=== PATIENT | female | born 1975 | race Caucasian/White ===

== ENCOUNTER → 2023-03-13 13:40 | Outpatient (REF) | payer OTHER, SELFPAY | LOC: WDC 13:40 | PROVIDERS: ATTENDING PHYSICIAN Nurse Practitioner Adult Health | DX: Z12.31 Encounter for screening mammogram for malignant neoplasm of breast (principal); R92.8 Other abnormal and inconclusive findings on diagnostic imaging of breast | CPT/HCPCS: 76642; 77063; 77067 ==

== ENCOUNTER → 2023-07-21 06:34 | Outpatient (REF) | payer OTHER, SELFPAY ==
[2023-07-21 09:27] LABS: ALT (SGPT) 16 U/L (0-35); AST (SGOT) 20 U/L (14-36); Alkaline Phosphatase 53 U/L (38-126); Blood Urea Nitrogen 12 mg/dl (7-17); Carbon Dioxide 25 mmol/L (22-30); Chloride 105 mmol/L (98-107); Glucose 113 mg/dl (70-99); Potassium 4.2 mmol/L (3.5-5.1); Sodium 138 mmol/L (135-145); Total Bilirubin 0.6 mg/dl (0.2-1.3); Total Protein 6.7 g/dl (6.3-8.2); eGFR > 60.00
[2023-07-21 09:41] LABS: Glycohemoglobin (HgbA1c) 7.1 % (4.0-5.6)
== END ==
LOC: CLINIC 06:34
PROVIDERS: ATTENDING PHYSICIAN Nurse Practitioner Adult Health
DX: E11.9 Type 2 diabetes mellitus without complications (principal)
CPT/HCPCS: 36415; 80053; 83036

== ENCOUNTER → 2023-10-19 11:07 | Outpatient (REF) | payer OTHER, SELFPAY ==
[2023-10-19 11:49] LABS: Hematocrit 36.1 % (37.0-47.0); Hemoglobin 11.7 g/dL (12.0-16.0); Mean Corp Hgb Conc. 32.4 g/dL (33.0-37.0); Mean Corpuscular Hgb 25.3 pg (27.0-31.0); Mean Platelet Volume 12.2 fL (7.4-10.4); Platelet Count 236 10^3/uL (130-400); Red Blood Cell Count 4.63 10^6/uL (4.20-5.40); White Blood Cell Count 7.4 10^3/uL (4.8-10.8)
[2023-10-19 12:18] LABS: Microalbumin/creatinine Ratio 27.7 mg/g
[2023-10-19 12:22] LABS: ALT (SGPT) 15 U/L (0-35); AST (SGOT) 21 U/L (14-36); Albumin 4.4 g/dl (3.5-5.0); Alkaline Phosphatase 66 U/L (38-126); Blood Urea Nitrogen 14 mg/dl (7-17); Calcium 9.3 mg/dl (8.4-10.2); Carbon Dioxide 23 mmol/L (22-30); Chloride 103 mmol/L (98-107); Glucose 109 mg/dl (70-99); HDL Cholesterol 42 mg/dl; LDL Cholesterol, Calculated 173 mg/dl; Potassium 4.6 mmol/L (3.5-5.1); Sodium 140 mmol/L (135-145); Total Bilirubin 0.5 mg/dl (0.2-1.3); Total Cholesterol 253 mg/dl (50-199); Triglyceride 193 mg/dl (10-149); Very Low Density Lipoprotein 38 mg/dl (0-30); eGFR > 60.00
[2023-10-19 12:23] LABS: Glycohemoglobin (HgbA1c) 6.5 % (4.0-5.6)
[2023-10-19 13:03] LABS: Vitamin B12 > 1000 pg/ml (239-931)
== END ==
LOC: REG 11:07
PROVIDERS: ATTENDING PHYSICIAN Nurse Practitioner Adult Health
DX: D50.8 Other iron deficiency anemias (principal); E11.9 Type 2 diabetes mellitus without complications; E78.2 Mixed hyperlipidemia
CPT/HCPCS: 36415; 80053; 80061; 82043; 82570; 82607; 83036; 85027

== ENCOUNTER → 2023-12-08 07:25 | Outpatient (REF) | payer OTHER, SELFPAY ==
[2023-12-08 09:06] LABS: ALT (SGPT) 17 U/L (0-35); AST (SGOT) 18 U/L (14-36); Albumin 4.2 g/dl (3.5-5.0); Alkaline Phosphatase 50 U/L (38-126); Total Bilirubin 0.4 mg/dl (0.2-1.3); Total Protein 6.7 g/dl (6.3-8.2)
== END ==
LOC: CLINIC 07:25
PROVIDERS: ATTENDING PHYSICIAN Nurse Practitioner Adult Health
DX: E78.2 Mixed hyperlipidemia (principal)
CPT/HCPCS: 36415; 80076

== ENCOUNTER → 2024-02-23 09:43 | Outpatient (REF) | payer OTHER, SELFPAY ==
[2024-02-23 11:19] LABS: Hemoglobin 12.4 g/dL (12.0-16.0); Mean Corp Hgb Conc. 32.6 g/dL (33.0-37.0); Mean Corpuscular Hgb 28.1 pg (27.0-31.0); Mean Corpuscular Volume 86.2 fL (81.0-99.0); Mean Platelet Volume 12.2 fL (7.4-10.4); Platelet Count 226 10^3/uL (130-400); Red Blood Cell Count 4.41 10^6/uL (4.20-5.40); Red Cell Dist. Width 13.2 % (11.5-14.5); White Blood Cell Count 8.1 10^3/uL (4.8-10.8)
[2024-02-23 11:44] LABS: Glycohemoglobin (HgbA1c) 6.6 % (4.0-5.6)
[2024-02-23 12:08] LABS: ALT (SGPT) 21 U/L (0-35); AST (SGOT) 26 U/L (14-36); Albumin 4.4 g/dl (3.5-5.0); Alkaline Phosphatase 67 U/L (38-126); Blood Urea Nitrogen 11 mg/dl (7-17); Calcium 9.4 mg/dl (8.4-10.2); Carbon Dioxide 27 mmol/L (22-30); Chloride 99 mmol/L (98-107); Glucose 118 mg/dl (70-99); HDL Cholesterol 41 mg/dl; LDL Cholesterol, Calculated 108 mg/dl; Potassium 4.6 mmol/L (3.5-5.1); Sodium 136 mmol/L (135-145); Total Bilirubin 0.7 mg/dl (0.2-1.3); Total Cholesterol 216 mg/dl (50-199); Total Protein 7.1 g/dl (6.3-8.2); Triglyceride 336 mg/dl (10-149); Very Low Density Lipoprotein 67 mg/dl (0-30); eGFR > 60.00
[2024-02-23 12:22] LABS: Microalbumin, Random Urine 1.8 mg/dl (0.6-1.7); Microalbumin/creatinine Ratio 50.4 mg/g
[2024-02-23 12:51] LABS: Vitamin B12 > 1000 pg/ml (239-931)
== END ==
LOC: CLINIC 09:43
PROVIDERS: ATTENDING PHYSICIAN Nurse Practitioner Adult Health
DX: D50.0 Iron deficiency anemia secondary to blood loss (chronic) (principal); E11.9 Type 2 diabetes mellitus without complications; E78.2 Mixed hyperlipidemia; R80.9 Proteinuria, unspecified
CPT/HCPCS: 36415; 80053; 80061; 82043; 82570; 82607; 83036; 85027

== ENCOUNTER → 2024-05-24 08:52 | Outpatient (REF) | payer OTHER, SELFPAY ==
[2024-05-24 10:35] LABS: Glycohemoglobin (HgbA1c) 6.6 % (4.0-5.6)
[2024-05-24 10:45] LABS: Microalbumin, Random Urine 1.6 mg/dl (0.6-1.7)
[2024-05-24 12:18] LABS: Microalbumin/creatinine Ratio 21.9 mg/g
[2024-05-24 13:08] LABS: ALT (SGPT) 22 U/L (0-35); AST (SGOT) 19 U/L (14-36); Albumin 4.4 g/dl (3.5-5.0); Alkaline Phosphatase 62 U/L (38-126); Blood Urea Nitrogen 11 mg/dl (7-17); Calcium 9.1 mg/dl (8.4-10.2); Carbon Dioxide 24 mmol/L (22-30); Chloride 106 mmol/L (98-107); Glucose 146 mg/dl (70-99); HDL Cholesterol 43 mg/dl; LDL Cholesterol, Calculated 133 mg/dl; Potassium 4.5 mmol/L (3.5-5.1); Sodium 139 mmol/L (135-145); Total Bilirubin 0.6 mg/dl (0.2-1.3); Total Cholesterol 217 mg/dl (50-199); Total Protein 6.8 g/dl (6.3-8.2); Triglyceride 206 mg/dl (10-149); Very Low Density Lipoprotein 41 mg/dl (0-30); eGFR > 60.00
== END ==
LOC: CLINIC 08:52
PROVIDERS: ATTENDING PHYSICIAN Nurse Practitioner Adult Health
DX: E11.9 Type 2 diabetes mellitus without complications (principal); R80.9 Proteinuria, unspecified
CPT/HCPCS: 36415; 80053; 80061; 82043; 82570; 83036

== ENCOUNTER → 2024-06-22 13:38 | Outpatient (REF) | payer OTHER, SELFPAY | LOC: CLINIC 13:38 | PROVIDERS: ATTENDING PHYSICIAN Nurse Practitioner Adult Health | DX: Z12.4 Encounter for screening for malignant neoplasm of cervix (principal) | CPT/HCPCS: 87624 ==

== ENCOUNTER 2024-07-07 00:01 | Emergency (ER) | payer SELFPAY ==
[2024-07-07 00:03] VITALS: BP 122/95
[2024-07-07 00:20] VITALS: BMI 27.3
[2024-07-07 00:50] LABS: % Basophils 0.5 % (0-2); % Eosinophils 4.4 % (0-6); % Immature Granulocytes 0.4 % (0-0.5); % Monocytes 6.6 % (1.7-9.3); % Neutrophils 66.1 % (42.2-75.2); Absolute Basophils 0.1 10^3/uL (0-0.2); Absolute Eosinophils 0.5 10^3/uL (0-0.7); Absolute Lymphocytes 2.5 10^3/uL (1.2-3.4); Absolute Monocytes 0.7 10^3/uL (0.1-0.6); Absolute Neutrophils 7.5 10^3/uL (1.4-6.5); Hematocrit 35.4 % (37.0-47.0); Hemoglobin 11.8 g/dL (12.0-16.0); Mean Corp Hgb Conc. 33.3 g/dL (33.0-37.0); Mean Corpuscular Hgb 27.4 pg (27.0-31.0); Mean Corpuscular Volume 82.3 fL (81.0-99.0); Mean Platelet Volume 12.1 fL (7.4-10.4); Nucleated Red Blood Cells % 0 %; Platelet Count 285 10^3/uL (130-400); White Blood Cell Count 11.3 10^3/uL (4.8-10.8)
[2024-07-07] MEDS: NSS 1000 IV (00:56)
[2024-07-07] MEDS: TORADOL 30 MG IV (00:57)
[2024-07-07] MEDS: ZOFRAN 4 MG IV (00:59)
[2024-07-07 01:02] LABS: HCG, Serum Qualitative Screen Negative
[2024-07-07 01:06] LABS: ALT (SGPT) 17 U/L (0-35); AST (SGOT) 18 U/L (14-36); Albumin 4.5 g/dl (3.5-5.0); Alkaline Phosphatase 52 U/L (38-126); Blood Urea Nitrogen 16 mg/dl (7-17); Carbon Dioxide 30 mmol/L (22-30); Chloride 103 mmol/L (98-107); Estimated Creatinine Clearance 106 ml/min; Glucose 162 mg/dl (70-99); Lipase 138 U/L (23-300); Potassium 4.1 mmol/L (3.5-5.1); Sodium 139 mmol/L (135-145); Total Bilirubin 0.3 mg/dl (0.2-1.3); Total Protein 7.4 g/dl (6.3-8.2); eGFR > 60.00
[2024-07-07 01:22] LABS: Urine Albumin 3+ (Neg - Trace); Urine Bilirubin Negative (Negative); Urine Character Clear (Clear); Urine Glucose Negative (Negative); Urine Ketone Negative (Negative); Urine Leukocyte Negative (Negative); Urine Nitrite Negative (Negative); Urine Occult Blood Negative (Negative); Urine Specific Gravity 1.015 (<1.030); Urine Urobilinogen Negative (Neg - 1+)
--- NOTE | 2024-07-07 01:27 | ED.GENMED ---
History of Present Illness
General
Chief Complaint: Flank Pain
Source: patient
Exam Limitations: none
Time Seen by Provider: 07/07/24 00:53
Nursing documentation reviewed up to this point in time: agreed with
History of Present Illness
History of Present Illness:
This is a 48-year-old woman with history of yuf-[id number] diabetes, hypertension, hyperlipidemia who presents with 2-day history of left flank pain that radiates to her left lower quadrant. Left flank pain has been intermittent, severe
tonight accompanied with restlessness, nausea and vomiting. No history of similar episodes in the past. She believes she had a fever yesterday and the day prior. She denies dysuria nor urgency but admits to urinary frequency. She has had no
hematuria.
She denies diarrhea or constipation. No cough no chest pain or shortness of breath.
She has not been taking anything for discomfort.
Her daily medications include metformin, lisinopril, atorvastatin.
She follows with our [facility].
Since arrival to the ED patient has been medicated with IV Toradol, Zofran and fluids and reports significant, now near complete relief of pain.
Past History
Past History
ED Past Medical History: HTN, Hypercholesterolemia, NIDDM and Other (Chronic facial acne/rosacea)
ED Past Surgical History: None
Social History
Tobacco: Non-smoker
Alcohol: None
Drug: None
Personal:
Living: with family
Family History
Family History: Other (Noncontributory)
Phy Exam
Physical Exam
Physical Exam:
GENERAL: 48-year-old woman appears her stated age, bright and alert, pleasant, appears in no acute distress.
EYE: anicteric
NECK: Supple, nontender, no meningismus, no significant adenopathy.
ENT: oral mucosa is moist. No rhinorrhea.
CARDIAC: Regular rate and rhythm. no murmur.
LUNGS: Clear breath sounds bilaterally, no acute respiratory distress, no wheezes/rales/rhonchi
ABDOMEN: Soft, nondistended, without focal tenderness, no r/g, moderate left CVA tenderness with percussion, normoactive BS.
NEUROLOGICAL: Alert and oriented x3, no focal neuro deficits. Gait is amador and steady.
SKIN: Warm and dry, normal color, skin intact. No rash.
MUSCULOSKELETAL: No C/C/E. peripheral pulses are full and equal b/l. No palpable tenderness.
PSYCH: Normal and appropriate interaction.
Course
Orders/Labs/Results
Orders:
Orders
07/07/24 00:32
Complete Blood Count/With Diff Urgent
Comprehensive Metabolic Panel Urgent
HCG, Serum Qualitative Screen Urgent
Comment: ADDED
Lipase Urgent
07/07/24 00:35
Add On- LAB Urgent
Comments:: serum hcg qualitative
Tests Added?: serum hcg qualitative
07/07/24 00:51
0.9% Sodium Chloride 1000 ml [Nss] 1,000 ml IV BOLUS
07/07/24 00:52
Ketorolac [Toradol] 30 mg IV NOW STA
Ondansetron Injectable [Zofran] 4 mg IV NOW STA
07/07/24 01:00
Urinalysis Reflex To Culture Urgent
Date Specimen was Collected: 07/07/24
Time Specimen was Collected: 00:54
Urine Microscopic Reflex Cult Urgent
07/07/24 01:16
CT Abd/pel Without Iv Or Oral Urgent
Comment:
Reason For Exam: acute L flank pain, rad to LLQ x 2-3 d
Abnormal Lab Results
07/07/24 07/07/24
00:32 01:00
WBC 11.3 H 10^3/uL
(4.8-10.8)
Hgb 11.8 L g/dL
(12.0-16.0)
Hct 35.4 L %
(37.0-47.0)
MPV 12.1 H fL
(7.4-10.4)
Absolute Neuts (auto) 7.5 H 10^3/uL
(1.4-6.5)
Absolute Monos (auto) 0.7 H 10^3/uL
(0.1-0.6)
Glucose 162 H mg/dl
(70-99)
Urine RBC 3-6 A /HPF
(0-2)
Urine Bacteria (Reflex) Few A
(Negative)
Urine Yeast Few A
(Negative)
Urine Albumin (Reflex) 3+ A
(Neg - Trace)
07/07/24 00:32
07/07/24 00:32
Vital Signs
Initial and Last Documented VS:
Initial Vital Signs
Temp Pulse Resp BP Pulse Ox
98.1 F 79 20 122/95 100
07/07/24 00:03 07/07/24 00:03 07/07/24 00:03 07/07/24 00:03 07/07/24 00:03
Last Documented Vital Signs
Temp Pulse Resp BP Pulse Ox
98.1 F 79 20 122/95 100
07/07/24 00:03 07/07/24 00:03 07/07/24 00:03 07/07/24 00:03 07/07/24 00:03
MDM/Problems Addressed
Differential Diagnosis Includes:
Concern for renal colic with left ureteric stone, concern for UTI/pyelonephritis. Other consideration is musculoskeletal pain.
Labs are pending including urinalysis.
Will check CT abdomen and pelvis.
Chronic conditions affecting care: DM
*Radiology
Radiology exam reviewed: radiology read reviewed
*Pulse Oximetry
Patient hypoxic: no
*Critical Care Note
Total Time (30-74mins, 75-104mins- exclusive of procedures): Not Applicable
Update Note
Update Note:
02:55
Patient remains pain-free and comfortable.
Labs show minimally elevated white blood cell count of 11.3. She remains afebrile.
Chemistries are unremarkable save for mildly elevated random glucose 162.
Urinalysis is unremarkable, 3-6 RBCs, few bacteria but only 6-10 WBCs and appears to be contaminated specimen with 16-20 squamous epithelial cells.
CAT scan shows mild left hydroureter without evidence of obstructive uropathy. This may be related to recently passed stone. There is no definitive evidence of UTI.
I suspect patient may have recently passed a stone.
Discussed importance of remaining well-hydrated on a daily basis.
Will discharge to home with recommendations for follow-up with our free clinic.
Return precautions discussed.
ED Attending Note
-
Portions of this chart may have been created with voice recognition software.� Occasional wrong word or��sound alike� substitutions may have occurred due to the inherent limitations of voice recognition software.
Discharge Plan
Departure
Patient Disposition: Home (Routine Discharge)
Date of Disposition: 07/07/24
Time of Disposition: 02:55
Patient with high blood pressure during this ER visit?: No
Condition: Good
Discharge Problem:
Acute left flank pain
Instructions: Flank Pain (DC)
Prescriptions:
No Action
doxycycline monohydrate 50 MG capsule
50 mg PO BID Qty: 60 1RF
ryhwqils-fqwcencjh-IR 1 DROP drops,suspension
3 drp otic (ear) TID Qty: 1 0RF
albuterol sulfate [ProAir HFA] 90 mcg/actuation HFA aerosol inhaler
2 puff inhalation Q4HPRN PRN (Reason: shortness of breath or wheezing) Qty: 8.5 0RF
prednisone 10 mg Tablet
See Rx Instructions .ROUTE .COMPLEX Qty: 30 0RF
Rx Instructions:
Take By Mouth:
40 mg daily x3 days, 30 mg daily x3 days,
20 mg daily x3 days, 10 mg daily x3 days.
Referrals:
Sanam Mejias, [employer] [Family Provider, Internal Medicine] - Call in 1-3 days for appt
Interventions
Interventions:
*Risk Screen - Suicide Last Done: 07/07/24 00:03
*General Assessment Last Done: 07/07/24 00:21
*Neglect/Abuse Screening Last Done: 07/07/24 00:21
*ED- Fall Risk Assessment Last Done: 07/07/24 00:21
*ED COVID-19 Vaccine History Last Done: 07/07/24 00:21
ST-Objtce-Uxfofhhcrq Assessment Last Done: 07/07/24 00:22
ED-Female Genitourinary Assessment Last Done: 07/07/24 00:22
Discharge Date and Time
Print Language: MOHAWK
[2024-07-07 01:28] LABS: Urine Color Straw
[2024-07-07 02:45] LABS: Urine Squamous Cell 16-20 /LPF (Few)
[2024-07-07 02:48] LABS: Urine Bacteria Few (Negative); Urine Yeast Few (Negative)
== END 2024-07-07 03:09 | disposition home or self-care (01) ==
LOC: EMR 00:01
PROVIDERS: EMERGENCY PHYSICIAN Emergency Medicine; FAMILY PHYSICIAN Nurse Practitioner Adult Health
DX: R10.32 Left lower quadrant pain (principal); R11.2 Nausea with vomiting, unspecified; N13.4 Hydroureter; E11.9 Type 2 diabetes mellitus without complications; I10 Essential (primary) hypertension; E78.00 Pure hypercholesterolemia, unspecified; L71.9 Rosacea, unspecified; Z79.899 Other long term (current) drug therapy; Z79.84 Long term (current) use of oral hypoglycemic drugs
CPT/HCPCS: 99284; 96374; 96375; 96361; 74176; 80053; 81003; 81015; 83690; 84703; 85025

== ENCOUNTER → 2024-08-23 09:58 | Outpatient (REF) | payer OTHER, SELFPAY ==
[2024-08-23 11:33] LABS: ALT (SGPT) 13 U/L (0-35); AST (SGOT) 15 U/L (14-36); Albumin 4.1 g/dl (3.5-5.0); Alkaline Phosphatase 44 U/L (38-126); Blood Urea Nitrogen 12 mg/dl (7-17); Calcium 8.7 mg/dl (8.4-10.2); Carbon Dioxide 25 mmol/L (22-30); Chloride 109 mmol/L (98-107); Glucose 109 mg/dl (70-99); HDL Cholesterol 42 mg/dl; Potassium 4.5 mmol/L (3.5-5.1); Sodium 138 mmol/L (135-145); Total Protein 6.7 g/dl (6.3-8.2); eGFR > 60.00
[2024-08-23 12:17] LABS: Glycohemoglobin (HgbA1c) 6.6 % (4.0-5.6)
[2024-08-23 12:56] LABS: LDL Cholesterol, Calculated 92 mg/dl; Very Low Density Lipoprotein 22 mg/dl (0-30)
== END ==
LOC: REG 09:58
PROVIDERS: ATTENDING PHYSICIAN Nurse Practitioner Adult Health
DX: E11.9 Type 2 diabetes mellitus without complications (principal); E78.2 Mixed hyperlipidemia
CPT/HCPCS: 36415; 80053; 80061; 83036

== ENCOUNTER → 2024-11-22 09:11 | Outpatient (REF) | payer OTHER, SELFPAY ==
[2024-11-22 10:28] LABS: Hematocrit 28.2 % (37.0-47.0); Hemoglobin 8.5 g/dL (12.0-16.0); Mean Corp Hgb Conc. 30.1 g/dL (33.0-37.0); Mean Corpuscular Volume 70.7 fL (81.0-99.0); Platelet Count 313 10^3/uL (130-400); Red Cell Dist. Width 16.2 % (11.5-14.5)
[2024-11-22 10:57] LABS: Glycohemoglobin (HgbA1c) 6.5 % (4.0-5.6)
[2024-11-22 11:09] LABS: Microalbumin, Random Urine 0.8 mg/dl (0.6-1.7)
[2024-11-22 11:10] LABS: Microalb - Urine Creatinine 33.500 mg/dl
[2024-11-22 11:15] LABS: ALT (SGPT) 16 U/L (0-35); AST (SGOT) 16 U/L (14-36); Albumin 4.2 g/dl (3.5-5.0); Alkaline Phosphatase 48 U/L (38-126); Blood Urea Nitrogen 9 mg/dl (7-17); Calcium 8.7 mg/dl (8.4-10.2); Carbon Dioxide 25 mmol/L (22-30); Chloride 106 mmol/L (98-107); Glucose 129 mg/dl (70-99); Potassium 4.5 mmol/L (3.5-5.1); Sodium 138 mmol/L (135-145); Total Protein 6.9 g/dl (6.3-8.2); eGFR > 60.00
== END ==
LOC: REG 09:11
PROVIDERS: ATTENDING PHYSICIAN Nurse Practitioner Adult Health
DX: E11.9 Type 2 diabetes mellitus without complications (principal); R80.9 Proteinuria, unspecified; N92.4 Excessive bleeding in the premenopausal period
CPT/HCPCS: 36415; 80053; 82043; 82570; 83036; 84146; 84443; 85027

== ENCOUNTER → 2024-12-27 12:30 | Outpatient (REF) | payer OTHER, SELFPAY ==
[2024-12-27 13:52] LABS: Hematocrit 32.6 % (37.0-47.0); Hemoglobin 10.2 g/dL (12.0-16.0); Mean Corp Hgb Conc. 31.3 g/dL (33.0-37.0); Mean Corpuscular Volume 71.2 fL (81.0-99.0); Platelet Count 252 10^3/uL (130-400); Red Cell Dist. Width 21.6 % (11.5-14.5)
[2024-12-27 13:55] LABS: Iron 27 ug/dl (37-170)
[2024-12-27 14:04] LABS: Total Iron Binding Capacity 381 ug/dl (265-497)
[2024-12-27 14:09] LABS: Vitamin D, 25-OH*** 32.9 ng/mL (30-80)
[2024-12-27 14:27] LABS: Ferritin 8.6 ng/ml (6.24-137)
[2024-12-27 14:42] LABS: Vitamin B12 973 pg/ml (239-931)
== END ==
LOC: CLINIC 12:30
PROVIDERS: ATTENDING PHYSICIAN Nurse Practitioner Adult Health
DX: D50.0 Iron deficiency anemia secondary to blood loss (chronic) (principal); R79.89 Other specified abnormal findings of blood chemistry
CPT/HCPCS: 36415; 82306; 82607; 82728; 83540; 83550; 85027